=== PATIENT | male | born 1960 | race Caucasian/White ===

== ENCOUNTER → 2017-04-16 | Outpatient (CLI) | payer OTHER | END | disposition home or self-care (01) | LOC: CT 14:59 | DX: K40.20 Bilateral inguinal hernia, without obstruction or gangrene, not specified as recurrent (principal); R91.1 Solitary pulmonary nodule; M43.16 Spondylolisthesis, lumbar region; M48.06 Spinal stenosis, lumbar region ==

== ENCOUNTER → 2019-10-07 | Outpatient (CLI) | payer OTHER ==
[~2019-10-07] MED LIST: ADULTS 50+ MUL1 EACH PO; GLUCOPHAGE1000 MG PO; LISINOPRIL20 MG PO; TYLENOL325 M2 PO; WELLBUTRIN SR100 MG PO; ZOLOFT100 MG PO
--- NOTE | 2019-10-07 09:45 | NUR ---
INFORMED CONSENT OBTAINED FOR STANDARD GXT WITH DR. CR. RESTING EKG NSR WITH A SUPINE HR OF 65 WITH BP OF 136/76 AND HR OF 79 WITH BP OF 126/72 IN STANDING POSITION. PT COMPLETED 12:00 OF A ALEM PROTOCOL WITH COMPLETION OF STAGE IV AT 4.2 MPH AND 16% GRADE. REACHED A PEAK HR OF 182 WHICH IS 112% OF PREDICTED MAX WITH A PEAK BP OF 208/60. TEST TERMINATED BECAUSE OF FATIGUE. HAD NO CHEST PAIN OR ANY EKG CHANGES. HAS A HIGH EXERCISE TOLERANCE. LAST RECOVERY HR OF 118 WITH BP OF 144/62. NEGATIVE STANDARD GXT. END OF RECOVERY IV DISCONTINUED AND DISCHARGED IN STABLE CONDITION.
== END | disposition home or self-care (01) ==
LOC: CARD 00:14
DX: Z02.1 Encounter for pre-employment examination (principal); R73.03 Prediabetes